=== PATIENT | female | born 1990 | race Two or more races ===

== ENCOUNTER 2018-06-24 10:37 | Outpatient (CLI) | payer OTHER ==
[2018-06-24 11:51] LABS: ADD MAN DIFF? NO
[2018-06-24 11:57] LABS: WHITE BLOOD COUNT 8.8 10^3/ul (4.8-10.8)
[2018-06-24 11:57] LABS: BASOPHILS % 0.3 % (0.0-2.0); EOSINOPHILS # 0.1 10^3/ul (0.0-0.5); HEMATOCRIT 31.7 % (37.0-47.0); HEMOGLOBIN 10.2 g/dl (12.0-16.0); LYMPHOCYTES # 1.7 10^3/ul (0.8-2.9); LYMPHOCYTES % 19.6 % (15.0-51.0); MEAN CORPUSCULAR HEMOGLOBIN 26.7 pg (29.0-33.0); MEAN CORPUSCULAR HGB CONC 32.2 g/dl (32.0-37.0); MEAN PLATELET VOLUME 8.8 fl (7.4-10.4); MONOCYTE # 0.9 10^3/ul (0.3-0.9); MONOCYTES % 10.6 % (0.0-11.0); NEUTROPHIL # 5.8 10^3/ul (1.6-7.5); NEUTROPHILS % 66.7 % (39.0-77.0); PLATELET COUNT 253 10^3/UL (140-415); RED BLOOD COUNT 3.82 10^6/ul (4.20-5.40); RED CELL DISTRIBUTION WIDTH 14.5 % (11.5-14.5)
[2018-06-24 12:14] LABS: ADD UMIC NO; UR ASCORBIC ACID NEGATIVE (NEGATIVE); UR BILIRUBIN (Dip) NEGATIVE (NEGATIVE); UR BLOOD (Dip) NEGATIVE (NEGATIVE); UR CLARITY CLEAR (CLEAR); UR COLOR STRAW (YELLOW); UR GLUCOSE (Dip) 1+ mg/dL (NEGATIVE); UR KETONES (Dip) NEGATIVE (NEGATIVE); UR LEUKOCYTE ESTERASE (Dip) NEGATIVE Leu/ul (NEGATIVE); UR NITRITE (Dip) NEGATIVE (NEGATIVE); UR SPECIFIC GRAVITY (Dip) 1.003 (1.003-1.030); UR TOTAL PROTEIN (Dip) NEGATIVE (NEGATIVE); UR UROBILINOGEN (Dip) NEGATIVE (NEGATIVE)
== END 2018-06-24 13:10 | disposition home or self-care (01) ==
LOC: OBT 10:37 → L-D 10:37 → OBT 13:10
DX: O26.892 Other specified pregnancy related conditions, second trimester (principal); R10.9 Unspecified abdominal pain; Z3A.21 21 weeks gestation of pregnancy
CPT/HCPCS: 81003; 85025; 87086

== ENCOUNTER 2018-10-15 15:57 | Outpatient (CLI) | payer OTHER ==
[2018-10-15 18:51] LABS: ADD UMIC NO; UR ASCORBIC ACID NEGATIVE (NEGATIVE); UR BILIRUBIN (Dip) NEGATIVE (NEGATIVE); UR BLOOD (Dip) NEGATIVE (NEGATIVE); UR CLARITY CLEAR (CLEAR); UR COLOR STRAW (YELLOW); UR GLUCOSE (Dip) NEGATIVE (NEGATIVE); UR KETONES (Dip) NEGATIVE (NEGATIVE); UR LEUKOCYTE ESTERASE (Dip) NEGATIVE Leu/ul (NEGATIVE); UR NITRITE (Dip) NEGATIVE (NEGATIVE); UR SPECIFIC GRAVITY (Dip) 1.006 (1.003-1.030); UR TOTAL PROTEIN (Dip) NEGATIVE (NEGATIVE); UR UROBILINOGEN (Dip) NEGATIVE (NEGATIVE)
== END 2018-10-15 18:50 | disposition home or self-care (01) ==
LOC: OBT 15:57 → L-D 15:58 → OBT 18:50
DX: O24.410 Gestational diabetes mellitus in pregnancy, diet controlled (principal); Z3A.38 38 weeks gestation of pregnancy
CPT/HCPCS: 76815; 76818; 81003; 87086

== ENCOUNTER 2018-10-19 13:11 | Outpatient (CLI) | payer OTHER | END 2018-10-19 14:28 | disposition home or self-care (01) | LOC: OBT 13:11 → L-D 13:11 → OBT 14:28 | DX: O24.419 Gestational diabetes mellitus in pregnancy, unspecified control (principal); O36.8330 Maternal care for abnormalities of the fetal heart rate or rhythm, third trimester, not applicable or unspecified; Z3A.38 38 weeks gestation of pregnancy | CPT/HCPCS: 76818 ==

== ENCOUNTER 2018-10-22 15:24 | Inpatient (IN) | payer OTHER ==
[2018-10-22] MEDS ORDERED: OXYTOCIN 30 UNITS/LR 500 ML IV ×2 (16:00→22:30)
[2018-10-22] MEDS ORDERED: CARBOPROST 250 MCG INJ IM ×2 (16:00→22:30)
[2018-10-22] MEDS ORDERED: METHYLERGONOVINE 0.2 MG INJ IM ×2 (16:00→22:30)
[2018-10-22] MEDS ORDERED: MISOPROSTOL 200 MCG TAB PR ×2 (16:00→22:30)
[2018-10-22] MEDS: LACTATED RINGER'S 1,000 ML IV (16:11)
[2018-10-22 16:29] LABS: ADD MAN DIFF? NO
[2018-10-22 16:30] LABS: BASOPHILS % 0.3 % (0.0-2.0); EOSINOPHILS # 0.1 10^3/ul (0.0-0.5); EOSINOPHILS % 0.8 % (0.0-7.0); HEMATOCRIT 39.4 % (37.0-47.0); HEMOGLOBIN 13.2 g/dl (12.0-16.0); LYMPHOCYTES # 1.9 10^3/ul (0.8-2.9); MEAN CORPUSCULAR HEMOGLOBIN 28.4 pg (29.0-33.0); MEAN CORPUSCULAR HGB CONC 33.5 g/dl (32.0-37.0); MEAN CORPUSCULAR VOLUME 84.7 fl (82.0-101.0); MEAN PLATELET VOLUME 9.2 fl (7.4-10.4); MONOCYTE # 0.6 10^3/ul (0.3-0.9); MONOCYTES % 8.6 % (0.0-11.0); NEUTROPHIL # 4.8 10^3/ul (1.6-7.5); NEUTROPHILS % 64.1 % (39.0-77.0); PLATELET COUNT 181 10^3/UL (140-415); RED BLOOD COUNT 4.65 10^6/ul (4.20-5.40); RED CELL DISTRIBUTION WIDTH 17.7 % (11.5-14.5)
[2018-10-22 16:30] LABS: WHITE BLOOD COUNT 7.4 10^3/ul (4.8-10.8)
[2018-10-22 16:49] LABS: INR 0.96; PARTIAL THROMBOPLASTIN TIME 28.2 Sec (23.0-35.0); PROTIME 12.9 Sec (11.9-14.9)
[2018-10-22] MEDS ORDERED: morphine SULFATE/PF (10 MG/10 ML) INJ (17:33)
[2018-10-22] MEDS ORDERED: FENTAnyl 50 MCG/ML VIAL (17:33)
[2018-10-22] MEDS ORDERED: EPHEDrine 25 MG/5 ML SYG (18:05)
[2018-10-22] MEDS ORDERED: PHENYLephrine (100 MCG/ML) 10ML SYG (18:06)
[2018-10-22] MEDS ORDERED: ONDANSETRON 4 MG INJ (18:19)
[2018-10-22] MEDS ORDERED: DEXAMETHASONE 4 MG/ML 1 ML INJ (18:19)
[2018-10-22] MEDS ORDERED: MIDAZOLAM 1 MG/ML 2 ML INJ (18:19)
[2018-10-22] MEDS ORDERED: NALOXONE (0.4 MG/ML) INJ IV (19:30)
[2018-10-22] MEDS ORDERED: ONDANSETRON 4 MG INJ IV ×2 (19:30→22:30)
[2018-10-22] MEDS ORDERED: DIPHENHYDRAMINE 50 MG INJ IV (19:30)
[2018-10-22] MEDS ORDERED: ZOLPIDEM 5 MG TAB PO (19:30)
[2018-10-22] MEDS ORDERED: HYDROmorphONE 0.5 MG/0.5 ML SYG IV ×2 (19:30)
[2018-10-22] MEDS: CEFAZOLIN 2 GM/50 ML (PMX) 50 ML IVPB (19:45)
[2018-10-22] MEDS: OXYTOCIN 30 UNITS/LR 500 ML IV (20:11)
[2018-10-22] MEDS: KETOROLAC 30 MG INJ IV (21:10)
[2018-10-22 21:40] LABS: RAPID PLASMA REAGIN NONREACTIVE (NR)
[2018-10-22] MEDS ORDERED: LANOLIN HPA 1 PKT TOP (22:30)
[2018-10-23] MEDS: LACTATED RINGER'S 1,000 ML IV ×2 (00:42→09:26)
[2018-10-23 07:05] LABS: ADD MAN DIFF? NO
[2018-10-23 07:10] LABS: WHITE BLOOD COUNT 11.3 10^3/ul (4.8-10.8)
[2018-10-23 07:10] LABS: BASOPHILS % 0.1 % (0.0-2.0); HEMATOCRIT 28.8 % (37.0-47.0); HEMOGLOBIN 9.5 g/dl (12.0-16.0); LYMPHOCYTES # 1.3 10^3/ul (0.8-2.9); LYMPHOCYTES % 11.1 % (15.0-51.0); MEAN CORPUSCULAR HEMOGLOBIN 28.4 pg (29.0-33.0); MEAN PLATELET VOLUME 9.2 fl (7.4-10.4); MONOCYTES % 8.5 % (0.0-11.0); NEUTROPHILS % 79.5 % (39.0-77.0); PLATELET COUNT 151 10^3/UL (140-415); RED BLOOD COUNT 3.35 10^6/ul (4.20-5.40); RED CELL DISTRIBUTION WIDTH 17.8 % (11.5-14.5)
[2018-10-23] MEDS: SENNA/DOCUSATE NA (8.6MG/50MG) TAB PO ×2 (09:25→22:10)
[2018-10-23] MEDS: KETOROLAC 30 MG INJ IV ×2 (12:12→18:06)
[2018-10-23] MEDS ORDERED: ZOLPIDEM 5 MG TAB PO (19:30)
[2018-10-23] MEDS ORDERED: OXYCODONE/ACETAMINOPHEN (5/325) TAB PO (19:30)
[2018-10-23] MEDS ORDERED: DIPHENHYDRAMINE 50 MG INJ IV (19:30)
[2018-10-23] MEDS: OXYCODONE/ACETAMINOPHEN (5/325) TAB PO (22:23)
[2018-10-24] MEDS: IBUPROFEN 600 MG TAB PO ×4 (00:34→17:48)
[2018-10-24] MEDS: SENNA/DOCUSATE NA (8.6MG/50MG) TAB PO ×2 (08:41→21:33)
[2018-10-25] MEDS: IBUPROFEN 600 MG TAB PO ×3 (00:09→12:55)
[2018-10-25] MEDS: SENNA/DOCUSATE NA (8.6MG/50MG) TAB PO (08:42)
[2018-10-25] MEDS: OXYCODONE/ACETAMINOPHEN (5/325) TAB PO (08:42)
[2018-10-25] MEDS: DIPHTH/TET/ACEL PERTUSS (ADULT) 0.5 ML VIAL IM* (10:57)
== END 2018-10-25 15:27 | disposition home or self-care (01) | DRG 788 ==
LOC: L-D 15:24 → PP1 21:42
PROVIDERS: Obstetrics & Gynecology
PROC: 10D00Z1 Extraction of Products of Conception, Low, Open Approach (ICD-10-PCS; principal; 2018-10-22 17:00)
PROC: 4A1HXCZ Monitoring of Products of Conception, Cardiac Rate, External Approach (ICD-10-PCS; 2018-10-22 17:00)
DX: O32.1XX0 Maternal care for breech presentation, not applicable or unspecified (principal); Z37.0 Single live birth; Z3A.39 39 weeks gestation of pregnancy; Z23 Encounter for immunization
CPT/HCPCS: 85025; 85610; 85730; 86592; 86850; 86900; 86901; 90686; 90715; 99464